=== PATIENT | female | born 1995 | race Caucasian/White ===

== ENCOUNTER 2022-02-03 11:27 | Observation (INO) | payer OTHER, SELFPAY ==
[2022-02-03 12:00] VITALS: BP 122/75; PULSE 101
[2022-02-03 12:01] VITALS: BP 122/62; PULSE 97
[2022-02-03 12:04] VITALS: BMI 43.5
--- NOTE | 2022-02-03 12:05 | OBADM ---
This patient, Jesica Gurrola, admitted to the OB room OB Post 115 for observation. Patient/family oriented to hospital policies and general routines including ID bracelet, bed and alarms, visiting hours, pain management, procedures, bathroom and other care routines, personal items, smoking policy, room service/diet, and visiting hours. Patient/Family are encouraged to report perceived risks to care and to ask questions if they do not understand what they are told or what they should do.
[2022-02-03 12:15] VITALS: BP 130/86; PULSE 120
[2022-02-03 12:30] VITALS: BP 130/76; PULSE 116
[2022-02-03 12:41] LABS: Appearance Urine Clear (Clear); Bilirubin Urine Negative (Negative); Blood Urine Trace-lysed (Negative); Color Urine Yellow (Yellow); Glucose Urine UA Negative (Negative); Ketones Urine 2+ mg/dL (Negative); Leukocyte Esterase Ur Negative LEU/UL (Negative); Nitrate Urine Negative (Negative); Protein Urine Negative (Negative); Urobilinogen Urine 0.2 mg/dL (<2.0)
[2022-02-03 12:45] VITALS: BP 128/74; PULSE 93
[2022-02-03 12:52] LABS: Bacteria Urine Trace /hpf; RBC Urine 0-2 /hpf (0-2); Squamous Epithelial Cell Urine Rare /hpf (Few); WBC Urine 0-3 /hpf
[2022-02-03 12:53] LABS: Add Urine Microscopic? YES
[2022-02-03 13:00] VITALS: BP 135/82; PULSE 107; TEMP 36.6
--- NOTE | 2022-02-05 08:59 | P.PNOB_ITS ---
OB - Triage/Final Diagnosis Visit Information Reason for evaluation: threatened labor Comments/Additional reasons for admission: I have assessed the risk for this patient, Jesica Gurrola, and determined that she would benefit from observation care. Evaluation Laboratory results: Laboratory Tests 02/03/22 11:56 Urine Color Yellow Urine Appearance Clear Urine pH 6.0 Ur Specific Sheldon 1.010 Urine Protein Negative Urine Glucose (UA) Negative Urine Ketones 2+ H Ur Blood (Man) Trace-lysed Urine Nitrate Negative Urine Bilirubin Negative Urine Urobilinogen 0.2 Leukocyte Esterase Rfl Negative Urine RBC 0-2 Urine WBC 0-3 Ur Squamous Epith Cells Rare Urine Bacteria Trace
== END 2022-02-03 14:24 | disposition hospice, home (50) ==
PROVIDERS: Admitting Provider Obstetrics & Gynecology; PCP Nurse Practitioner Adult Health; Visit Provider Obstetrics & Gynecology
DX: O47.9 False labor, unspecified (principal); Z3A.00 Weeks of gestation of pregnancy not specified
CPT/HCPCS: 81001; G0378; G0379

== ENCOUNTER 2022-03-02 10:29 | Outpatient (CLI) | payer OTHER, SELFPAY ==
[2022-03-02 11:31] VITALS: BP 123/66; PULSE 96
--- NOTE | 2022-03-02 11:50 | PC.NURSE ---
Dr Poole notified of patient c/o leaking and swelling, ROM plus negative. OK to dc home and encourage PO hydration.
== END 2022-03-02 11:40 | disposition home or self-care (01) ==
LOC: ANHOBOP 11:20 → ANHOBPP 11:20
PROVIDERS: PCP Nurse Practitioner Adult Health; Visit Provider Obstetrics & Gynecology
DX: O42.90 Premature rupture of membranes, unspecified as to length of time between rupture and onset of labor, unspecified weeks of gestation (principal); Z3A.00 Weeks of gestation of pregnancy not specified
CPT/HCPCS: 59025; 84112; 99199

== ENCOUNTER 2022-03-05 10:16 | Outpatient (RCR) | payer OTHER, SELFPAY ==
[2022-02-12 11:15] VITALS: BP 120/67
[2022-02-16 10:54] VITALS: BP 132/80
[2022-02-19 10:57] VITALS: BP 130/79; PULSE 98
[2022-02-23 11:02] VITALS: BP 130/83; PULSE 115
--- NOTE | 2022-02-26 11:18 | PC.NURSE ---
Dr. Rodriguez on unit and reviewed tracing that has a variable decel in otherwise reactive tracing. Order received for BPP and SVEN; may discharge to home if BPP 8/8. Pt already has a BPP and EFW ordered.
[2022-02-26 11:27] VITALS: BP 128/72; PULSE 102
--- NOTE | ~2022-03-05 | US_ITS ---
EXAMINATION: US OB BPP wo non-stress DATE: 02/19/2022 11:19 CDT INDICATION: Gestational diabetes. TECHNIQUE: Real-time transabdominal obstetric ultrasound. FINDINGS: 02/12/2022 There is a single living fetus in vertex presentation. The placenta is anterior without placenta pre via. cardiac activity and movement is noted with a heart rate of 157 beats per minute. Biophysical profile: breathin of 2 movement: 2 of 2 tone: 2 of 2 Amniotic flud pocket: 2 of 2 Total score: 8 of 8 IMPRESSION: 1. Single living intrauterine in vertex presentation. 2: Total biophysical profile score of 8/8. Reviewed, dictated and finalized at location B.
--- NOTE | ~2022-03-05 | US_ITS ---
EXAMINATION: US OB BPP wo non-stress DATE: 02/12/2022 11:49 CDT INDICATION: Gestational diabetes TECHNIQUE: Real-time transabdominal obstetric ultrasound. FINDINGS: 12/28/2021 There is a single living fetus in vertex presentation. The placenta is anterior without placenta pre via. cardiac activity and movement is noted with a heart rate of 155 beats per minute. Biophysical profile: breathin of 2 movement: 2 of 2 tone: 2 of 2 Amniotic flud pocket: 2 of 2 Total score: 8 of 8 IMPRESSION: 1. Single living intrauterine in vertex presentation. 2: Total biophysical profile score of 8/8. Reviewed, dictated and finalized at location A.
--- NOTE | ~2022-03-05 | US_ITS ---
EXAMINATION: US OB follow up w BPP DATE: 02/26/2022 11:57 INDICATION: Gestational diabetes. Third trimester. TECHNIQUE: Real-time ultrasound of the pelvis was performed. COMPARISON: Ultrasound 02/19/2022 FINDINGS: There is a single living fetus in vertex presentation. The placenta is anterior. heart rate is 138 beats per minute (bpm). The amniotic fluid index is 12.6 cm, which is normal. The following biometric data were obtained: Biparietal diameter (BPD): 9.0 cm; head circumference (HC): 32.1 cm; abdominal circumference (AC): 33 .9 cm; femur length (FL): 7.1 cm. These measurements are concordant. Estimated weight is 3115 g +/- 467 g, which correlates with the 53rd percentile when 03/17/22 is used as estimated date of delivery. As single measurements, these parameters are each equal to the following estimated gestational ages: BPD: 36 weeks 2 days. HC: 36 weeks 1 days. AC: 37 weeks 5 days. FL: 36 weeks 3 days. estimated gestational age based solely on measurements from this exam is 36 weeks 5 days +/- 2 weeks 4 days. Biophysical profile performed by the technologist: breathing (30 sec sustained breathing in 30 minutes): 2 out of 2 movement (3 gross body movements in 30 minutes): 2 out of 2 tone (one episode of punfdgo-xnpmbidps-ztxftya limb movement): 2 out of 2 Amniotic fluid pocket (2 cm): 2 out of 2 Total score: 8 out of 8 IMPRESSION: 1. Single living fetus in vertex presentation. 2. Estimated weight is 3115 g +/- 467 g, which correlates with the 53rd percentile when 03/17/22 is used as estimated date of delivery. 3. Biophysical profile 8 out of 8. Reviewed, dictated and finalized at location B.
--- NOTE | ~2022-03-05 | US_ITS ---
EXAMINATION: US OB BPP wo non-stress DATE: 03/05/2022 11:14 INDICATION: Gestational diabetes. Third trimester. TECHNIQUE: Real-time pelvic ultrasound was performed. COMPARISON: Ultrasound 02/26/2022 FINDINGS: There is a single living fetus in vertex presentation. The placenta is anterior. heart rate is 151 beats per minute (bpm). The amniotic fluid index is 9.6 cm, which is normal. Biophysical profile performed by the technologist: breathing (30 sec sustained breathing in 30 minutes): 2 out of 2 movement (3 gross body movements in 30 minutes): 2 out of 2 tone (one episode of gyfbiio-srikgtmls-tgxqndk limb movement): 2 out of 2 Amniotic fluid pocket (2 cm): 2 out of 2 Total score: 8 out of 8 IMPRESSION: 1. Single living fetus in vertex presentation. 2. Biophysical profile 8 out of 8. Reviewed, dictated and finalized at location A.
[2022-03-05 11:20] VITALS: BP 128/73; PULSE 88
== END 2022-03-23 10:50 | disposition home or self-care (01) ==
LOC: ANHOBOP 10:16
PROVIDERS: PCP Nurse Practitioner Adult Health; Visit Provider Obstetrics & Gynecology
DX: O24.419 Gestational diabetes mellitus in pregnancy, unspecified control (principal); Z3A.35 35 weeks gestation of pregnancy; Z3A.36 36 weeks gestation of pregnancy; Z3A.38 38 weeks gestation of pregnancy
CPT/HCPCS: 59025; 76816; 76819

== ENCOUNTER 2022-03-10 04:52 | Inpatient (IN) | payer OTHER, SELFPAY ==
[2022-03-10] VITALS (143 sets, daily range): BP systolic 73–138; BP diastolic 38–98; PULSE 77–130; RESP 18; TEMP 36.5–36.6; O2SAT 99–100; BMI 43.3
[2022-03-10] MEDS: OXYTOCIN 30 UNITS/NS 500 ML 30 UNITS/500 ML BAG 6 UNITS IV CONT (05:44)
[2022-03-10 05:45] LABS: Basophils Absolute Auto 0.1 K/mm3 (0.0-0.1); Basophils Percent Auto 0.6 % (0.2-1.2); Eosinophils Absolute Auto 0.1 K/mm3 (0-0.3); Eosinophils Percent Auto 0.9 % (0-4.4); Hematocrit 37.4 % (37.0-47.0); Hemoglobin 12.4 g/dL (12.0-15.0); Immature Granulocyte Absolute 0.08 K/mm3 (0.00-0.031); Immature Granulocyte Percent A 0.9 % (0-0.5); Lymphocytes Absolute Auto 1.93 K/mm3 (0.9-3.2); Lymphocytes Percent Auto 21.6 % (18.3-44.2); Mean Corpuscular HGB Conc 33.2 g/dl (32-36); Mean Corpuscular Hemoglobin 27.1 pg (26-34); Mean Corpuscular Volume 81.8 fl (80-100); Mean Platelet Volume 11.4 fl (7.4-10.4); Monocytes Absolute Auto 0.6 K/mm3 (0.1-0.6); Monocytes Percent Auto 6.2 % (2.6-8.5); Neutrophils Absolute Auto 6.2 K/mm3 (1.3-6.7); Neutrophils Percent Auto 69.8 % (45.5-73.1); Platelet Count Result 225 k/mm3 (150-375); Red Blood Count 4.57 M/mm3 (4.2-5.4); Red Cell Distribution Width 13.7 % (11.5-14.5); White Blood Count 8.9 K/mm3 (4.5-10.0)
[2022-03-10] MEDS: LACTATED RINGERS 1,000 ML 125 ML IV CONT ×4 (05:46→20:46)
--- NOTE | 2022-03-10 05:56 | OBADM ---
This patient, Jesica Gurrola, admitted to the OB room Labor/Delivery/Recovery 103 for observation. Patient/family oriented to hospital policies and general routines including ID bracelet, bed and alarms, visiting hours, pain management, procedures, bathroom and other care routines, personal items, smoking policy, room service/diet, and visiting hours. Patient/Family are encouraged to report perceived risks to care and to ask questions if they do not understand what they are told or what they should do.
[2022-03-10 06:10] LABS: Glucose Point of Care 139 mg/dl (65-105)
--- NOTE | 2022-03-10 08:53 | WPDANESEPP ---
Anes - Eval Pre Procedure Procedure: labor epidural Date/Time: 03/10/22 08:54 Preop Diagnosis: labor pain Pre Op Diagnosis: Induction of Labor Patient Data Age: 26 Gender: F Height: 1.6 m Weight: 111 kg Last Vital Signs Pulse 111 H 03/10/22 08:46 BP 134/53 L 03/10/22 08:46 O2 Del Method Room Air 03/10/22 05:30 Allergies Allergy/AdvReac Type Severity Reaction Status Date / Time No Known Allergies Allergy Verified 03/08/22 14:19 Home Medications Medication Instructions Recorded Confirmed Type aspirin 81 mg tablet,delayed 81 mg PO DAILY 11/10/21 03/08/22 History release vitamins-iron fumarate 65 1 tablet PO DAILY 11/10/21 03/08/22 History mg iron-folic acid 1 mg tablet glyburide 2.5 mg tablet 2.5 mg PO BID #30 tabs 02/11/22 03/08/22 Rx methylphenidate HCl 36 mg 36 mg PO 02/15/22 03/08/22 History tablet,extended release 24 hr (Concerta) Laboratory Tests 03/10/22 03/10/22 03/10/22 05:32 05:32 05:48 WBC 8.9 K/mm3 K/mm3 (4.5-10.0) RBC 4.57 M/mm3 M/mm3 (4.2-5.4) Hgb 12.4 g/dL g/dL (12.0-15.0) Hct 37.4 % % (37.0-47.0) MCV 81.8 fl fl (80-100) MCH 27.1 pg pg (26-34) MCHC 33.2 g/dl g/dl (32-36) RDW 13.7 % % (11.5-14.5) Plt Count 225 k/mm3 k/mm3 (150-375) MPV 11.4 fl H fl (7.4-10.4) Immature Gran % (Auto) 0.9 % H % (0-0.5) Neut % (Auto) 69.8 % % (45.5-73.1) Lymph % (Auto) 21.6 % % (18.3-44.2) [place] % (Auto) 6.2 % % (2.6-8.5) Eos % (Auto) 0.9 % % (0-4.4) Baso % (Auto) 0.6 % % (0.2-1.2) Lymph # (Auto) 1.93 K/mm3 K/mm3 (0.9-3.2) [place] # (Auto) 0.6 K/mm3 K/mm3 (0.1-0.6) Eos # (Auto) 0.1 K/mm3 K/mm3 (0-0.3) Baso # (Auto) 0.1 K/mm3 K/mm3 (0.0-0.1) Abs Immat Gran (auto) 0.08 K/mm3 H K/mm3 (0.00-0.031) Absolute Neuts (auto) 6.2 K/mm3 K/mm3 (1.3-6.7) Absolute Nucleated RBC 0.0 K/mm3 K/mm3 (0.0-0.012) Nucleated RBC % 0.0 % % (0.0-0.2) POC Capillary Glucose 139 mg/dl H mg/dl (65-105) RPR Pending Patient hx anesthesia problems: none Family hx anesthesia problems: none Results Review: All pre-operative results and documents have been reviewed as part of the pre-operative evaluation. REPLACED BY [facility] Past Medical History Medical History (Updated 03/10/22 @ 08:54 by Magdalena Paulson CRNA) Abnormal glucose tolerance in ADHD (attention deficit hyperactivity disorder) Anxiety Chronic disease of adenoids Dizziness Gestational diabetes Family History Family History Grandparent Heart disease maternal and paternal grandparents Diabetes mellitus maternal and paternal grandparents Cerebrovascular accident maternal grandmother Father Diabetes mellitus Social History Social History Smoking status: Never smoker Alcohol intake: never Substance use: never Gender identity (if verbalized by the patient): Female Sexual Orientation (if Verbalized by the Patient): Straight or Heterosexual Spiritual care concerns: No Exam Day of Procedure 03/10/22 08:54
[2022-03-10 10:13] LABS: Glucose Point of Care 83 mg/dl (65-105)
[2022-03-10 10:28] LABS: Rapid Plasma Reagin Non-Reactive (NonReactive)
[2022-03-10 15:24] LABS: Glucose Point of Care 70 mg/dl (65-105)
[2022-03-10] MEDS: ACETAMINOPHEN 500 MG TABLET 1000 MG PO (18:35)
[2022-03-10 19:24] LABS: Glucose Point of Care 84 mg/dl (65-105)
[2022-03-10 22:59] LABS: Glucose Point of Care 78 mg/dl (65-105)
[2022-03-11] VITALS (23 sets, daily range): BP systolic 68–124; BP diastolic 49–78; PULSE 95–125; RESP 16–18; TEMP 36.4–37.1; O2SAT 96–100
[2022-03-11] MEDS: OXYTOCIN 30 UNITS/NS 500 ML 30 UNITS/500 ML BAG 125 UNITS IV CONT (01:20)
--- NOTE | 2022-03-11 01:30 | WPDHPUPDATE1 ---
History and Physical Update Update Date/Time: 03/11/22 01:30 History and Physical has been reviewed, including an updated exam of the patient. There are NO changes in the patient's condition. Risks, benefits, and alternatives have been discussed and questions answered. Patient agrees to proceed with procedure.
--- NOTE | 2022-03-11 01:30 | WPDOBADMIT ---
Obstetrics - Admit Note Admission Note: record reviewed. No pertinent additions to the history and/or any subsequent changes in the physical findings that are not consistent with the expected course of the were found. Additions to the history and/or subsequent changes in the physical findings follow. None.
--- NOTE | 2022-03-11 01:30 | PM.OBPRVD ---
OB - Delivery Note Procedure Delivery date: 03/11/22 Events: Gestational Diabetes Induction method: AROM and Per Pitocin Protocol Delivery monitor: External FHT and Internal Uterine Route of delivery: Episiotomy description: None Laceration Description: Perineal - 2nd Degree Delivery repair: chromic Specimen: Yes Quantitative Blood Loss (ml): 350 Anesthesia type: Epidural Disposition: Floor Complications: None Narrative: patient prepped and draped usual manner for this procedure. Maternal expulsive efforts delivered vertex in the rest of baby without difficulty. Cord clamped and cut and placenta delivered spontaneously. Cervix vagina vulva were inspected with second-degree laceration noted. This was approximated using 2-0 chromic in running interlocking manner to approximate the vaginal tissue and deep tissue and a subcuticular layer. Small amount of oozing was encountered and a packing was placed in the vaginal area to be removed at 3:20 p.m. minutes. Uterus was well contracted with no bleeding and immediate postoperative condition mother baby were both excellent. Baby Weeks of gestation at delivery: 39 gender: Male Weight (pounds): 6 Weight (ounces): 15 presentation: vertex Placenta delivery description: Spontaneous Cord Vessel Description: 3 Vessels score one minute: 8 score five minutes: 9 AMG Delivery Billing Delivery Delivery: Delivery Charge
[2022-03-11] MEDS: WITCH HAZEL 40 PADS 1 PAD TOPICAL (03:30)
[2022-03-11] MEDS: BENZOCAINE 20% AER SPR (*SP) 56 GM CAN 1 SPRAY TOPICAL (03:30)
[2022-03-11] MEDS: IBUPROFEN 600 MG TABLET (03:34)
[2022-03-11] MEDS: DOCUSATE SODIUM 100 MG CAPSULE PO ×2 (07:15→17:14)
[2022-03-11] MEDS: MULTIVIT/MIN/PREN/FOL AC/IRON TABLET 1 TAB PO (07:15)
--- NOTE | 2022-03-11 07:44 | PM.OBDSVD ---
DS: Admitting Diagnosis Discharge Date 03/12/2022 Admitting Diagnosis OB - DS: Summary OB Procedures : None OB Procedures Intrapartum: Spontaneous Vag Delivery OB Procedures: : None Time Spent with Patient Time attestation: Total time spent providing and/or coordinating discharge services: DS: Data Data Completed and Pending Pending studies at discharge: Pending at discharge 03/11/22 01:50 Surgical [PTH] Routine Labs on day of discharge: Labs from last 24 hours 03/10/22 03/10/22 03/10/22 22:56 19:15 15:12 POC Capillary Glucose 78 84 70 RPR Blood Type Antibody Screen 03/10/22 03/10/22 03/10/22 10:11 08:40 05:32 POC Capillary Glucose 83 RPR Non-reactive Blood Type O Positive Antibody Screen Negative Discharge Plan Discharge Discharging Clinician: Last Poole Patient Disposition: Home, Self-Care Activity: as tolerated Diet: as tolerated Patient Instructions: Antibiotic Form Stand Alone Forms: General Discharge Information Follow-up/Referrals: Last Poole MD [Physician] - 3 Weeks Discharge Medications: New ibuprofen 600 mg Tablet 600 mg PO Q6H PRN (Reason: Cramping) Qty: 30 0RF Continued vit-iron fum-folic ac 65 mg iron- 1 mg tablet 1 tablet PO DAILY methylphenidate HCl [Concerta] 36 mg Tablet Extended Release 24hr 36 mg PO Discontinued aspirin 81 mg tablet,delayed release (DR/EC) 81 mg PO DAILY glyburide 2.5 mg tablet 2.5 mg PO BID Qty: 30 1RF Date of admission: 03/10/22 04:52 Primary Care Provider: AkiraDiana Admitting Provider: Last Poole Attending physician on admission: Last Poole Condition: Stable
--- NOTE | 2022-03-11 08:07 | PC.NURSE ---
[id number] Introductions were made, then consulted with patient to assess needs related to . Mother led the conversation with her experience feeding her so far and states fed great for the first feeding, then was sleepy after that with no attempt. Infant is in the nursery getting circumcized and a hearing screen. Mother desires to at least pump and feed breastmilk. Reported to RN the blood sugar resulted at 48mg/dl at 0600. Breast pump provided due to ineffective feeding and mother's preference. Instructions given on cleaning, care, usage, that there should be no pain, pumping schedule for milk production, collection, and storage of human milk. Parents are encouraged to record pumping schedule on the feeding sheet. Patient was assessed for correct placement, flange size, to pump for comfort and nipple stretching/stimulation for adequate milk production every 3 hours (8 times in 24 hours). Mother voiced understanding if it has been 2 -3 hours since the start of the last , to call if infant does not latch or there is discomfort with . Reported to the primary RN.
[2022-03-11] MEDS: IBUPROFEN 600 MG TABLET PO (13:22)
--- NOTE | 2022-03-11 16:36 | PC.NURSE ---
[id number] Mother had just finished a breastfeed and hand expressing/pumping session. Primary RN is syringe feeding 1ml of colostrum.
[2022-03-11] MEDS: ACETAMINOPHEN 325 MG TABLET 650 MG PO (17:12)
[2022-03-12] MEDS: IBUPROFEN 600 MG TABLET PO (04:23)
[2022-03-12 05:55] LABS: Hematocrit 28.1 % (37.0-47.0); Hemoglobin 9.1 g/dL (12.0-15.0)
[2022-03-12] MEDS: POLYSACCHARIDE IRON COMPLEX 150 MG CAPSULE PO (07:33)
[2022-03-12] MEDS: DOCUSATE SODIUM 100 MG CAPSULE PO (07:33)
[2022-03-12] MEDS: MULTIVIT/MIN/PREN/FOL AC/IRON TABLET 1 TAB PO (07:33)
[2022-03-12 08:00] VITALS: BP 122/75; PULSE 83; RESP 16; TEMP 36.7; O2SAT 100
--- NOTE | 2022-03-12 09:55 | PC.NURSE ---
Patient instructed to view the discharge video Mother & Baby Care, The First Two Weeks . Patient was given the opportunity and encouraged to ask questions. Patient verbalized understanding of information shared and has been given the mother/baby guide for home reference.
[2022-03-13 09:13] VITALS: BP 129/74; PULSE 96; RESP 20; TEMP 36.9; O2SAT 99
--- NOTE | 2022-03-17 11:08 | PM.OBDSVD ---
DS: Admitting Diagnosis Discharge Date 03/12/22 Admitting Diagnosis OB - DS: Summary OB Procedures : None OB Procedures Intrapartum: Spontaneous Vag Delivery OB Procedures: : None Time Spent with Patient Time attestation: Total time spent providing and/or coordinating discharge services: DS: Data Data Completed and Pending Completed studies during hospitalization: Pending at discharge 03/11/22 01:50 Surgical [PTH] Routine Discharge Plan Discharge Consulting providers: Magdalena Paulson Discharging Clinician: Last Poole Patient Disposition: Home, Self-Care Activity: as tolerated Diet: as tolerated Discharge Instructions: Education: Mom and Baby Guide and Preeclampsia Handout Given to: Mother Follow-Up: Call your delivering provider's office for an appointment to be seen in: 3 weeks Mom and baby should come to the [facility] for the follow-up appointment. Appointment Date/Time: March 13, 2022 at 9:00 am What to expect at your follow-up visit: Physical Assessment Call [phone] if you are unable to keep your appointment time. BREAST CARE: * Wear a snug supportive bra. * For engorgement discomfort: Breast Feeding: * Apply warm moist washcloths * Express milk as needed to relieve engorgement * Wear loose clothing Bottle Feeding: * May apply ice packs * For sore nipples: * Identify correct latch-on * Apply warm moist washcloths before and after nursing * Air dry nipples after nursing * May apply Lansinoh cream to nipples EPISIOTOMY/PERINEAL CARE: * Until bleeding stops, use your brad bottle after urinating * Change your pad frequently throughout the day * You may take sitz baths several times a day (fill your bathtub with warm water and soak for 20 minutes.) Do NOT bathe in the water * No tub baths until seen by your physician - You may shower ACTIVITY: * Rest as much as possible. * Do not exercise or lift anything heavier than your baby (such as laundry or other children.) * Avoid stairs or driving as much as possible. * Do not put anything into the vagina. No douching, tampons, or sexual activity until seen by physician. NOTIFY PHYSICIAN IF YOU HAVE ANY QUESTIONS OR IF ANY OF THE FOLLOWING SYMPTOMS OCCUR: * If your episiotomy becomes red, swollen, or more painful than what you have experienced in the hospital. * If your vaginal bleeding becomes foul smelling. * If your vaginal bleeding becomes more heavy than a period or if your bleeding changes from pink to bright red. However, you may pass an occasional walnut-sized clot once or twice for the first week . * If you experience a sharp, shooting pain in you calves. * If you discover a hard, reddened area on your breast or if you experience flu-like symptoms. DIET: * Eat regular, well-balanced meals. * Drink plenty of fluids daily. If , drink to thirst. Stand Alone Forms: General Discharge Information Follow-up/Referrals: Last Poole MD [Physician] - 3 Weeks Discharge Medications: New ibuprofen 600 mg Tablet 600 mg PO Q6H PRN (Reason: Cramping) Qty: 30 0RF Continued vit-iron fum-folic ac 65 mg iron- 1 mg tablet 1 tablet PO DAILY methylphenidate HCl [Concerta] 36 mg Tablet Extended Release 24hr 36 mg PO Discontinued aspirin 81 mg tablet,delayed release (DR/EC) 81 mg PO DAILY glyburide 2.5 mg tablet 2.5 mg PO BID Qty: 30 1RF Date of admission: 03/10/22 04:52 Primary Care Provider: Akira*Diana Veronica Admitting Provider: Last Poole Attending physician on admission: Last Poole Condition: Stable
== END 2022-03-12 11:25 | disposition home or self-care (01) | DRG 807 ==
LOC: ANHLDR 04:56 → ANHOB2 03-11 03:57
PROVIDERS: Admitting Provider Obstetrics & Gynecology; PCP Nurse Practitioner Adult Health; Visit Provider Obstetrics & Gynecology
DX: O24.429 Gestational diabetes mellitus in childbirth, unspecified control (principal); Z37.0 Single live birth; O70.1 Second degree perineal laceration during delivery; O69.81X0 Labor and delivery complicated by cord around neck, without compression, not applicable or unspecified; Z3A.39 39 weeks gestation of pregnancy
CPT/HCPCS: 36415; 82948; 85014; 85018; 85025; 86592; 86850; 86900; 86901; 88307; A9270; J2590; J2795; J7120

== ENCOUNTER 2024-05-05 09:25 | Outpatient (RCR) | payer OTHER, SELFPAY ==
[2024-03-26 17:34] VITALS: BP 118/77; PULSE 99
[2024-03-29 09:13] VITALS: BP 125/66; PULSE 109
[2024-04-02 15:46] VITALS: BP 122/72; PULSE 80
[2024-04-06 15:49] VITALS: BP 122/70; PULSE 96
[2024-04-09 16:03] VITALS: BP 137/77; PULSE 81
[2024-04-16 17:00] VITALS: BP 126/76; PULSE 77
[2024-04-20 15:50] VITALS: BP 130/81; PULSE 90
[2024-04-23 16:40] VITALS: BP 133/70; PULSE 82
[2024-04-27 15:25] VITALS: BP 128/76; PULSE 86
[2024-04-30 15:22] VITALS: BP 136/77; PULSE 86
[2024-05-02 10:03] LABS: Basophils Percent Auto 0.3 % (0.2-1.2); Eosinophils Absolute Auto 0.1 K/mm3 (0-0.3); Eosinophils Percent Auto 0.7 % (0-4.4); Hematocrit 33.3 % (37.0-47.0); Hemoglobin 10.9 g/dL (12.0-15.0); Immature Granulocyte Absolute 0.15 K/mm3 (0.00-0.031); Immature Granulocyte Percent A 1.6 % (0-0.5); Lymphocytes Absolute Auto 1.45 K/mm3 (0.9-3.2); Lymphocytes Percent Auto 15.1 % (18.3-44.2); Mean Corpuscular HGB Conc 32.7 g/dl (32-36); Mean Corpuscular Volume 82.4 fl (80-100); Mean Platelet Volume 10.9 fl (7.4-10.4); Monocytes Absolute Auto 0.5 K/mm3 (0.1-0.6); Monocytes Percent Auto 5.5 % (2.6-8.5); Neutrophils Absolute Auto 7.4 K/mm3 (1.3-6.7); Neutrophils Percent Auto 76.8 % (45.5-73.1); Nucleated Red Blood Cells Perc 0.2 % (0.0-0.2); Platelet Count Result 192 k/mm3 (150-375); Red Blood Count 4.04 M/mm3 (4.2-5.4); Red Cell Distribution Width 13.2 % (11.5-14.5); White Blood Count 9.6 K/mm3 (4.5-10.0)
[2024-05-02 10:10] LABS: Add Urine Microscopic? YES; Appearance Urine Cloudy (Clear); Bacteria Urine 1+ /hpf; Bilirubin Urine Negative (Negative); Blood Urine Trace (Negative); Color Urine Yellow (Yellow); Glucose Urine UA Negative (Negative); Ketones Urine Trace mg/dL (Negative); Leukocyte Esterase Ur Negative LEU/UL (Negative); Nitrate Urine Negative (Negative); Non Pathogenic Casts 0-2; Protein Urine 1+ mg/dL (Negative); Specific Grav Ur 1.017 (1.001-1.035); Squamous Epithelial Cell Urine Occasional /hpf (Few); Urobilinogen Urine 0.2 mg/dL (<2.0); pH Urine 6.5 (5.0-9.0)
[2024-05-02 10:13] LABS: Alanine Aminotransferase 11 U/L (6-35); Albumin Level 3.3 g/dL (3.5-5.1); Alkaline Phosphatase 135 U/L (38-126); Anion Gap 8 mmol/L (4-12); Aspartate Amino Transferase 23 U/L (14-36); Bilirubin,Total 0.3 mg/dL (0.2-1.3); Blood Urea Nitrogen 5 mg/dL (7-17); Calcium 8.4 mg/dL (8.4-10.2); Carbon Dioxide 25 mmol/L (22-30); Chloride 101 mmol/L (98-107); Estimated Glomerular Filt Rate > 60; Glucose 98 mg/dL (65-110); Potassium 3.7 mmol/L (3.4-5.0); Sodium 134 mmol/L (137-145)
[2024-05-02 10:26] LABS: Creatinine Urine 97.3 mg/dL; Total Protein Urine Random 51 mg/dL; Ur Ttl Prot Creatinine Ratio 0.52 mg/mg (0-0.20)
[2024-05-02 11:26] VITALS: BP 147/78; PULSE 86
[2024-05-02 12:57] VITALS: BP 147/78; PULSE 105
--- NOTE | 2024-05-02 12:58 | PC.NURSE ---
Dr. Poole reviewed labs, reported BPP 04/19. Pt may be discharged, she is to return Tuesday for NST and repeat labs. She is to call the office for an appt on Tuesday.
[2024-05-02 15:07] VITALS: BP 145/87
[2024-05-02 15:15] VITALS: BP 146/82
--- NOTE | 2024-05-02 15:54 | PC.NURSE ---
Reported to Dr. Poole pt took BP at home with a wrist cuff. Dr. Poole stated he told her not to use that because it isn't acurate. Reported BPs. Pt may be discharged home, she is to return Tuesday for testing and Tuesday evening for IOL.
--- NOTE | ~2024-05-05 | US_ITS ---
EXAMINATION: US OB BPP wo non-stress DATE: 04/02/2024 16:29 INDICATION: GDM . TECHNIQUE: Real-time ultrasound of the pelvis was performed. COMPARISON: 03/26/2024 FINDINGS: There is a single living fetus in breech presentation, transverse lie, head to maternal right. The p lacenta is anterior. heart rate is 148 bpm. The deepest amniotic fluid pocket measures 6.2 cm. Biophysical profile performed by the technologist: breathing (30 sec sustained breathing in 30 minutes): 2 out of 2. movement (3 gross body movements in 30 minutes: 2 out of 2. tone (one episode of fkkqfak-xepbiosnq-kbdspbo limb movement): 2 out of 2. Amniotic fluid pocket (2 cm): 2 out of 2. Total score: 8 out of 8. IMPRESSION: Single living fetus in breech presentation, transverse lie, head to maternal right. Biophysical profile 8 out of 8. Reviewed, dictated and finalized at location K. IMPRESSION: Single living fetus in breech presentation, transverse lie, head to maternal ri ght. Biophysical profile 8 out of 8.
--- NOTE | ~2024-05-05 | US_ITS ---
EXAMINATION: US OB follow up w BPP DATE: 04/23/2024 17:00 INDICATION: GDM - BPP and Growth . TECHNIQUE: Real-time ultrasound of the pelvis was performed. COMPARISON: 04/16/2024, 03/26/2024. FINDINGS: There is a single living fetus in vertex presentation, longitudinal lie. The placenta is anterior. F etal heart rate is 141 bpm. The amniotic fluid index is 13.2 cm, which is normal (5th to 95th percent ile is 7.9 to 24.9 cm). The following biometric data were obtained: Biparietal diameter (BPD): 9.05 cm; head circumference (HC): 35.77 cm; abdominal circumference (AC): 34.16 cm; femur length (FL): 7.11 cm. These measurements are concordant. Estimated weight is 3351 g +/- 502.65 g, which correlates with the 95.7 percentile when 05/23/20 24 is used as estimated date of delivery. As single measurements, these parameters are each equal to the following estimated gestational ages w ith ranges of +/- 2 standard deviations: BPD: 36 weeks 5 days ( 33 weeks 3 days - 39 weeks 6 days). HC: out of range, greater than 97th percentile. AC: 38 weeks 0 days ( 35 weeks 0 days - 41 weeks 1 days). FL: 36 weeks 3 days ( 33 weeks 2 days - 39 weeks 4 days). estimated gestational age based solely on measurements from this exam is 37 weeks 0 days +/- 2 weeks 4 days. Biophysical profile performed by the technologist: breathing (30 sec sustained breathing in 30 minutes): 2 out of 2. movement (3 gross body movements in 30 minutes: 2 out of 2. tone (one episode of wszjwxv-vjpiivigx-gmbdhjn limb movement): 2 out of 2. Amniotic fluid pocket (2 cm): 2 out of 2. Total score: 8 out of 8. IMPRESSION: Single living fetus in vertex presentation. Biophysical profile 8 out of 8. Head circumference measures out of range, greater than the 97th percentile. Estimated weight 3351 g +/- 502.65 g (95.7th percentile). RAPHAEL based on ultrasound 05/14/2024. Reviewed, dictated and finalized at location K.
--- NOTE | ~2024-05-05 | US_ITS ---
EXAMINATION: US OB BPP wo non-stress DATE: 04/30/2024 15:58 INDICATION: Maternal gestational diabetes during third trimester TECHNIQUE: Real-time pelvic ultrasound was performed. The interpreting radiologist was not present fo r the study. COMPARISON: 04/23/2024 FINDINGS: There is a single living fetus in transverse lie presentation. The placenta is anterior and not low- lying. heart rate is 150 beats per minute (bpm). Normal cervical length of proximal 4 cm. The e ndocervical canal is hypoechoic measuring up to 7-8 mm in maximal diameter which could represent eith er intraluminal fluid or mucus plug. Biophysical profile performed by the technologist: breathing (30 sec sustained breathing in 30 minutes): 2 out of 2 movement (3 gross body movements in 30 minutes): 2 out of 2 tone (one episode of wwgayao-ihletjgfo-vxczmzk limb movement): 2 out of 2 Amniotic fluid pocket (2 cm): 2 out of 2 Total score: 8 out of 8 IMPRESSION: 1. Single living fetus in transverse lie presentation with heart rate of 150 bpm. 2. Biophysical profile 8 out of 8. Reviewed, dictated and finalized at location A.
--- NOTE | ~2024-05-05 | US_ITS ---
EXAMINATION: US OB BPP wo non-stress DATE: 04/09/2024 16:04 INDICATION: maternal gestational diabetes during third trimester TECHNIQUE: Real-time pelvic ultrasound was performed. The interpreting radiologist was not present fo r the study. COMPARISON: None. FINDINGS: There is a single living fetus in transverse lie with vertex to maternal right. The placenta is ante rior. heart rate is 141 beats per minute (bpm). Biophysical profile performed by the technologist: breathing (30 sec sustained breathing in 30 minutes): 2 out of 2 movement (3 gross body movements in 30 minutes): 2 out of 2 tone (one episode of mwigrlf-feffotetk-vesbybd limb movement): 2 out of 2 Amniotic fluid pocket (2 cm): 2 out of 2 Total score: 8 out of 8 IMPRESSION: 1. Single living fetus in transverse lie with heart rate of 141 bpm. 2. Biophysical profile 8 out of 8. Reviewed, dictated and finalized at location A.
--- NOTE | ~2024-05-05 | US_ITS ---
EXAMINATION: US OB BPP wo non-stress DATE: 04/16/2024 17:06 INDICATION: BPP for GDM . TECHNIQUE: Real-time ultrasound of the pelvis was performed. COMPARISON: 04/09/2024 FINDINGS: There is a single living fetus in breech presentation, transverse lie, vertex in the right upper quad rant. The placenta is anterior, well distant from the cervix. heart rate is [address] vertical amniotic fluid pocket measures 6.9 cm. Biophysical profile performed by the technologist: breathing (30 sec sustained breathing in 30 minutes): 2 out of 2. movement (3 gross body movements in 30 minutes: 2 out of 2. tone (one episode of mohvngy-zqzuamlbd-rjvgeqg limb movement): 2 out of 2. Amniotic fluid pocket (2 cm): 2 out of 2. Total score: 8 out of 8. IMPRESSION: Single living fetus in breech presentation, transverse lie, vertex in the right upper quadrant. Biophysical profile 8 out of 8. . Reviewed, dictated and finalized at location K.
--- NOTE | ~2024-05-05 | US_ITS ---
EXAMINATION: US OB follow up w BPP DATE: 03/26/2024 17:05 INDICATION: BPP and GROWTH for GDM . TECHNIQUE: Real-time ultrasound of the pelvis was performed. COMPARISON: 01/11/2024, images only; 03/05/2022. FINDINGS: There is a single living fetus in breech presentation, transverse lie, head to maternal right. The p lacenta is anterior. heart rate is 145 bpm. The deepest vertical amniotic fluid pocket measures 3.9 cm. The following biometric data were obtained: Biparietal diameter (BPD): 8.52 cm; head circumference (HC): 31.77 cm; abdominal circumference (AC): 29.29 cm; femur length (FL): 6.09 cm. These measurements are concordant. Estimated weight is 2129 g +/- 319.35 g, which correlates with the 83.5 percentile when 05/23/20 24 is used as estimated date of delivery. As single measurements, these parameters are each equal to the following estimated gestational ages w ith ranges of +/- 2 standard deviations: BPD: 34 weeks 2 days ( 31 weeks 2 days - 37 weeks 3 days). HC: 35 weeks 5 days ( 32 weeks 5 days - 38 weeks 5 days). AC: 33 weeks 2 days ( 30 weeks 2 days - 36 weeks 2 days). FL: 31 weeks 4 days ( 28 weeks 5 days - 34 weeks 4 days). estimated gestational age based solely on measurements from this exam is 33 weeks 5 days +/- 2 weeks 3 days. Biophysical profile performed by the technologist: breathing (30 sec sustained breathing in 30 minutes): 2 out of 2. movement (3 gross body movements in 30 minutes: 2 out of 2. tone (one episode of srjtdgh-ddpwazwvi-knblcxg limb movement): 2 out of 2. Amniotic fluid pocket (2 cm): 2 out of 2. Total score: 8 out of 8. IMPRESSION: Single living fetus in breech presentation, transverse lie, head to maternal right. Biophysical profile 8 out of 8. Estimated weight 2129 g +/- 319.35 g. Reviewed, dictated and finalized at location K. IMPRESSION: Single living fetus in breech presentation, transverse lie, head to maternal ri ght. Biophysical profile 8 out of 8. Estimated weight 2129 g +/- 319.35 g.
--- NOTE | ~2024-05-05 | US_ITS ---
LIMITED OBSTETRIC ULTRASOUND/BIOPHYSICAL PROFILE Ordering provider: Last Poole MD History: . BPP, Growth, elevated blood pressure . Comparison: None. FINDINGS: Single live fetus Estimated ultrasound age is 37 weeks 2 days. RAPHAEL is May 21, 2024 PRESENTATION: Vertex. Longitudinal lie. PLACENTAL LOCATION: Anterior. No previa. HEART RATE: 162 bpm (normal is between 110 to 160 bpm). AMNIOTIC FLUID INDEX: 19.3 cm. Largest vertical pocket is 7.4 cm. . -- BIOMETRICS: BPD: 8.7 mm = 35 weeks and 1 day. HC: 338.1 mm = 38 weeks and 6 days. FL: 72.7 mm = 37 weeks and 2 days. AC: 337.3 mm = 37 weeks and 4 days. HC/AC: 1 FL/BPD: 83.4 FL/AC: 21.6 Estimated weight is 3190 gm. Percentile is 66.4%. SCORE: breathing movements: 2 movements: 2 tone: 2 Amniotic fluid volume: 2 Total: 8 IMPRESSION: Single live fetus of cephalic presentation. Normal biophysical profile. Reviewed, dictated and finalized at location A.
[2024-05-05 09:50] LABS: Basophils Percent Auto 0.5 % (0.2-1.2); Eosinophils Absolute Auto 0.1 K/mm3 (0-0.3); Eosinophils Percent Auto 0.8 % (0-4.4); Hematocrit 34.8 % (37.0-47.0); Hemoglobin 11.2 g/dL (12.0-15.0); Immature Granulocyte Absolute 0.07 K/mm3 (0.00-0.031); Immature Granulocyte Percent A 0.9 % (0-0.5); Lymphocytes Absolute Auto 1.24 K/mm3 (0.9-3.2); Mean Corpuscular HGB Conc 32.2 g/dl (32-36); Mean Corpuscular Hemoglobin 26.6 pg (26-34); Mean Corpuscular Volume 82.7 fl (80-100); Mean Platelet Volume 10.9 fl (7.4-10.4); Monocytes Absolute Auto 0.4 K/mm3 (0.1-0.6); Monocytes Percent Auto 5.3 % (2.6-8.5); Neutrophils Absolute Auto 5.9 K/mm3 (1.3-6.7); Neutrophils Percent Auto 76.5 % (45.5-73.1); Platelet Count Result 210 k/mm3 (150-375); Red Blood Count 4.21 M/mm3 (4.2-5.4); Red Cell Distribution Width 13.5 % (11.5-14.5); White Blood Count 7.8 K/mm3 (4.5-10.0)
[2024-05-05 10:00] LABS: Alanine Aminotransferase 11 U/L (6-35); Albumin Level 3.3 g/dL (3.5-5.1); Alkaline Phosphatase 134 U/L (38-126); Anion Gap 7 mmol/L (4-12); Aspartate Amino Transferase 23 U/L (14-36); Bilirubin,Total 0.3 mg/dL (0.2-1.3); Blood Urea Nitrogen 6 mg/dL (7-17); Calcium 8.3 mg/dL (8.4-10.2); Carbon Dioxide 27 mmol/L (22-30); Chloride 99 mmol/L (98-107); Estimated Glomerular Filt Rate > 60; Glucose 104 mg/dL (65-110); Potassium 3.8 mmol/L (3.4-5.0); Sodium 133 mmol/L (137-145); Uric Acid 4.9 mg/dL (2.5-7.5)
[2024-05-05 10:01] LABS: Total Protein Urine Random 186 mg/dL; Ur Ttl Prot Creatinine Ratio 1.13 mg/mg (0-0.20)
[2024-05-05 10:41] LABS: Add Urine Microscopic? YES; Appearance Urine Cloudy (Clear); Bacteria Urine 4+ /hpf; Bilirubin Urine Negative (Negative); Blood Urine 1+ (Negative); Color Urine Yellow (Yellow); Glucose Urine UA Negative (Negative); Ketones Urine Negative (Negative); Leukocyte Esterase Ur Negative LEU/UL (Negative); Need Manual Microscopic Reviewed; Nitrate Urine Negative (Negative); Protein Urine 3+ mg/dL (Negative); Specific Grav Ur 1.021 (1.001-1.035); Squamous Epithelial Cell Urine Few /hpf (Few); WBC Urine 21-50 /hpf (0-3)
[2024-05-05 11:56] VITALS: BP 134/100; PULSE 100
== END 2024-06-24 23:59 | disposition home or self-care (01) ==
LOC: ANHOBOP 09:25
PROVIDERS: PCP Nurse Practitioner Adult Health; Visit Provider Obstetrics & Gynecology
DX: O24.419 Gestational diabetes mellitus in pregnancy, unspecified control (principal); Z3A.31 31 weeks gestation of pregnancy; Z3A.32 32 weeks gestation of pregnancy; Z3A.33 33 weeks gestation of pregnancy; Z3A.34 34 weeks gestation of pregnancy; Z3A.36 36 weeks gestation of pregnancy
CPT/HCPCS: 36415; 59025; 76816; 76819; 80053; 81001; 82570; 84156; 84550; 85025; 87077; 87086; 87088

== ENCOUNTER 2024-05-05 10:26 | Outpatient (CLI) | payer OTHER, SELFPAY ==
[2024-05-05] VITALS (7 sets, daily range): BP systolic 126–150; BP diastolic 75–85; PULSE 81–102; O2SAT 97–98; BMI 46.0
[2024-05-05] MEDS: LABETALOL HCL 100 MG TABLET 200 MG PO (10:38)
--- NOTE | 2024-05-05 11:49 | PC.NURSE ---
Dr. Adorno notified of patient here for NST and PIH labs. FHT category 1 with no contractions. Patient's blood pressure elevated with an elevated PC ratio. Orders received to give labetalol PO and monitor blood pressures. Dr adorno updated about blood pressures. Okay to discharge with prescription of labetalol Q12 and 24 hour hour urine. Patient in agreement with plan of care and will be here tomorrow evening for induction.
== END 2024-05-05 11:50 | disposition home or self-care (01) ==
LOC: ANHOBOP 10:31 → ANHLDR 10:31
PROVIDERS: PCP Nurse Practitioner Adult Health; Visit Provider Obstetrics & Gynecology
DX: R80.9 Proteinuria, unspecified (principal)
CPT/HCPCS: 99199; A9270

== ENCOUNTER 2024-05-06 16:43 | Inpatient (IN) | payer OTHER, SELFPAY ==
[2024-05-06] VITALS (12 sets, daily range): BP systolic 92–127; BP diastolic 47–67; PULSE 71–88; BMI 46.0
[2024-05-06 17:40] LABS: Basophils Percent Auto 0.4 % (0.2-1.2); Eosinophils Percent Auto 0.4 % (0-4.4); Hematocrit 30.7 % (37.0-47.0); Hemoglobin 10.1 g/dL (12.0-15.0); Lymphocytes Absolute Auto 1.85 K/mm3 (0.9-3.2); Mean Corpuscular HGB Conc 32.9 g/dl (32-36); Mean Corpuscular Hemoglobin 26.7 pg (26-34); Mean Corpuscular Volume 81.2 fl (80-100); Mean Platelet Volume 11.5 fl (7.4-10.4); Monocytes Absolute Auto 0.8 K/mm3 (0.1-0.6); Monocytes Percent Auto 8.1 % (2.6-8.5); Neutrophils Absolute Auto 7.4 K/mm3 (1.3-6.7); Neutrophils Percent Auto 72.1 % (45.5-73.1); Platelet Count Result 211 k/mm3 (150-375); Red Blood Count 3.78 M/mm3 (4.2-5.4); Red Cell Distribution Width 13.6 % (11.5-14.5); White Blood Count 10.3 K/mm3 (4.5-10.0)
[2024-05-06 18:33] LABS: HIV 1/2 Ab P24 Ag Result Negative (Negative)
[2024-05-06] MEDS: DINOPROSTONE 10 MG VAG INSERT VAGINAL (18:36)
--- NOTE | 2024-05-06 18:45 | LDADM ---
This patient, Jesica Gurrola, was admitted to Labor/Delivery/Recovery 106 on 05/06/24 at 16:43. Plans for labor, pain management and were discussed with patient. Patient/family oriented to hospital policies and general routines including ID bracelet, bed and alarms, visiting hours, pain management, procedures, bathroom and other care routines, personal items, smoking policy, room service/diet and guest tray routines, infant security routines, and visiting hours. Patient/Family are encouraged to report perceived risks to care and to ask questions if they do not understand what they are told or what they should do. See OBIX for further documentation.
[2024-05-06 18:50] LABS: Rapid Plasma Reagin Non-Reactive (NonReactive)
[2024-05-06 19:07] LABS: Collection Time Urine 24 HOURS
[2024-05-06 19:16] LABS: Creatinine Urine 117.8 mg/dL; Patient Weight 260 Lbs; Total Protein Urine Random 46 mg/dL
[2024-05-06] MEDS: LACTATED RINGERS 1,000 ML 125 ML IV CONT (19:29)
[2024-05-06] MEDS: AMPICILLIN 2 GM/NS 100 ML 2 GM/100 ML BAG IVPB (19:29)
[2024-05-06 19:46] LABS: Total Protein Urine 24 Hr 690 mg/24hr (28-141); Total Volume 24 Hour Urine 1500 ml
[2024-05-06] MEDS: AMPICILLIN 1 GM/NS 50 ML 1 GM/50 ML BAG IVPB (23:21)
[2024-05-06 23:31] LABS: Alanine Aminotransferase 11 U/L (6-35); Albumin Level 3.2 g/dL (3.5-5.1); Alkaline Phosphatase 131 U/L (38-126); Anion Gap 8 mmol/L (4-12); Aspartate Amino Transferase 26 U/L (14-36); Bilirubin,Total 0.3 mg/dL (0.2-1.3); Blood Urea Nitrogen 8 mg/dL (7-17); Calcium 8.8 mg/dL (8.4-10.2); Carbon Dioxide 23 mmol/L (22-30); Chloride 101 mmol/L (98-107); Estimated CRCL calculation 173 ml/min; Estimated Glomerular Filt Rate > 60; Glucose 72 mg/dL (65-110); Potassium 4.1 mmol/L (3.4-5.0); Sodium 132 mmol/L (137-145); Uric Acid 5.4 mg/dL (2.5-7.5)
[2024-05-07] VITALS (120 sets, daily range): BP systolic 78–155; BP diastolic 26–92; PULSE 68–269; RESP 20; TEMP 36.7–38.1; O2SAT 95–100
[2024-05-07] MEDS: AMPICILLIN 1 GM/NS 50 ML 1 GM/50 ML BAG IVPB ×3 (03:45→11:30)
[2024-05-07] MEDS: OXYTOCIN 30 UNITS/NS 500 ML 30 UNITS/500 ML BAG IV CONT (05:51)
[2024-05-07] MEDS: ESCITALOPRAM OXALATE 10 MG TABLET PO (07:39)
[2024-05-07] MEDS: LABETALOL HCL 100 MG TABLET 200 MG PO ×2 (07:39→20:16)
--- NOTE | 2024-05-07 07:57 | PHAR ---
Home med verified: Methylphenidate ER 54mg Take 1 tablet PO QAM
--- NOTE | 2024-05-07 10:46 | WPDANESEPP ---
Anes - Eval Pre Procedure Procedure: Operation Date: 05/17/24 12:00 Proposed Procedures p Section - Last Poole MD Date/Time: 05/07/24 10:46 Surgeon: amy Pre Op Diagnosis: IOL Patient Data Age: 28 Gender: F Height: 1.6 m Weight: 118 kg Last Vital Signs Temp 98.1 F 05/07/24 09:23 Pulse 85 05/07/24 10:46 BP 142/87 H 05/07/24 10:46 Pulse Ox 98 05/07/24 10:43 O2 Del Method Room Air 05/06/24 18:39 Allergies Allergy/AdvReac Type Severity Reaction Status Date / Time No Known Allergies Allergy Verified 05/06/24 18:58 Home Medications Medication Instructions Recorded Confirmed Type blood-glucose sensor (FreeStyle #1 ea 03/19/24 05/02/24 Rx Gregg 3 Sensor device) glyburide 2.5 mg tablet 2.5 mg PO QHS #90 tabs 03/19/24 05/06/24 Rx blood-glucose sensor (FreeStyle #6 ea 03/20/24 05/02/24 Rx Gregg 3 Sensor device) aspirin 81 mg tablet,delayed 162 mg PO DAILY 03/21/24 05/06/24 History release (Adult Low Dose Aspirin) escitalopram oxalate 10 mg tablet 10 mg PO DAILY #60 tabs 03/21/24 05/06/24 Rx famotidine 20 mg tablet (Pepcid) 20 mg PO HS 04/27/24 05/06/24 History vit no.95-ferrous 1 tablet PO DAILY 04/27/24 05/06/24 History fumarate 28 mg-folic acid 800 mcg tablet () methylphenidate HCl 54 mg 54 mg PO QAM #30 tabs 05/03/24 05/06/24 Rx tablet,extended release 24 hr labetalol 200 mg tablet 200 mg PO Q12H 5 days #10 tabs 05/05/24 05/06/24 Rx Laboratory Tests 05/06/24 05/06/24 17:15 18:39 WBC 10.3 H K/mm3 (4.5-10.0) RBC 3.78 L M/mm3 (4.2-5.4) Hgb 10.1 L g/dL (12.0-15.0) Hct 30.7 L % (37.0-47.0) MCV 81.2 fl (80-100) MCH 26.7 pg (26-34) MCHC 32.9 g/dl (32-36) RDW 13.6 % (11.5-14.5) Plt Count 211 k/mm3 (150-375) MPV 11.5 H fl (7.4-10.4) Immature Gran % (Auto) 1.0 H % (0-0.5) Neut % (Auto) 72.1 % (45.5-73.1) Lymph % (Auto) 18.0 L % (18.3-44.2) [place] % (Auto) 8.1 % (2.6-8.5) Eos % (Auto) 0.4 % (0-4.4) Baso % (Auto) 0.4 % (0.2-1.2) Lymph # (Auto) 1.85 K/mm3 (0.9-3.2) [place] # (Auto) 0.8 H K/mm3 (0.1-0.6) Eos # (Auto) 0.0 K/mm3 (0-0.3) Baso # (Auto) 0.0 K/mm3 (0.0-0.1) Abs Immat Gran (auto) 0.10 H K/mm3 (0.00-0.031) Absolute Neuts (auto) 7.4 H K/mm3 (1.3-6.7) Absolute Nucleated RBC 0.000 K/mm3 (0.0-0.012) Nucleated RBC % 0.0 % (0.0-0.2) Sodium 132 L mmol/L (137-145) Potassium 4.1 mmol/L (3.4-5.0) Chloride 101 mmol/L (98-107) Carbon Dioxide 23 mmol/L (22-30) Anion Gap 8 mmol/L (4-12) BUN 8 mg/dL (7-17) Creatinine 0.50 L mg/dL (0.7-1.0) Estim Creat Clear Calc 173 ml/min Estimated GFR > 60 (59 - ) Glucose 72 mg/dL (65-110) Uric Acid 5.4 mg/dL (2.5-7.5) Calcium 8.8 mg/dL (8.4-10.2) Total Bilirubin 0.3 mg/dL (0.2-1.3) AST 26 U/L (14-36) ALT 11 U/L (6-35) Alkaline Phosphatase 131 H U/L (38-126) Total Protein 6.0 L g/dL (6.3-8.2) Albumin 3.2 L g/dL (3.5-5.1) U Random Total Protein 46 mg/dL Ur 24 Hour Volume 1500 ml Urine Creatinine 117.8 mg/dL Creatinine Clearance 197.0 H ml/min (75-125) Ur Total Protein 24 Hr 690 H mg/24hr (28-141) RPR Non-reactive (NonReactive) HIV 1&2 Ab/P24 Ag 4thGn Negative (Negative) Blood Type O Positive Antibody Screen Negative Patient hx anesthesia problems: none Family hx anesthesia problems: none Results Review: All pre-operative results and documents have been reviewed as part of the pre-operative evaluation. [facility] Past Medical History Medical History Abnormal glucose tolerance in ADHD (at
[2024-05-07 11:45] LABS: Glucose Point of Care 75 mg/dl (65-105)
[2024-05-07 14:03] LABS: Glucose Point of Care 75 mg/dl (65-105)
--- NOTE | 2024-05-07 14:42 | WPDHPUPDATE1 ---
History and Physical Update Update Date/Time: 05/07/24 14:42 History and Physical has been reviewed, including an updated exam of the patient. There are NO changes in the patient's condition. Risks, benefits, and alternatives have been discussed and questions answered. Patient agrees to proceed with procedure.
--- NOTE | 2024-05-07 14:42 | PM.OBPRVD ---
OB - Vaginal Delivery Note Procedure Delivery date: 05/07/24 Events: Gestational Diabetes and Preeclampsia w/o severe features Induction method: Per Cervidil Protocol Delivery augmentation: Rupture of Membranes and Pitocin Delivery monitor: External FHT and Internal Uterine Route of delivery: Episiotomy description: None Laceration Description: Vaginal Delivery repair: chromic Specimen: Yes Quantitative Blood Loss (ml): 200 Anesthesia type: Epidural Disposition: Floor Complications: No immediate complications Narrative: patient prepped and draped in usual manner for this procedure. Maternal expulsive efforts delivered vertex over intact perineum, rest of baby delivered without issue. Cord was clamped and cut and placenta delivered spontaneously. Cervix vagina vulva were inspected with vaginal wall laceration noted, was bleeding and repaired using 2-0 chromic running interlocking suture with good approximation and hemostasis noted. Uterus well Contracted. Immediate condition of mother and baby both excellent. Baby Gestational Age by Date: 39 Infant gender: Female presentation: vertex Placenta delivery description: Spontaneous Cord Vessel Description: 3 Vessels
[2024-05-07] MEDS: OXYTOCIN 30 UNITS/NS 500 ML 30 UNITS/500 ML BAG 125 UNITS IV CONT (14:55)
--- NOTE | 2024-05-07 17:40 | PC.NURSE ---
Patient transferred to post room #290 via wheelchair. Support person present. Oriented to unit, room, information board, rooming in, admission packet and security measures. Patient verbalizes understanding.
[2024-05-07] MEDS: FAMOTIDINE 20 MG TABLET PO (20:16)
[2024-05-07] MEDS: IBUPROFEN 600 MG TABLET PO (20:17)
[2024-05-08] VITALS (7 sets, daily range): BP systolic 115–137; BP diastolic 48–82; PULSE 75–101; RESP 16–18; TEMP 36.4–37.1; O2SAT 97–99
[2024-05-08] MEDS: IBUPROFEN 600 MG TABLET PO ×2 (04:25→16:30)
[2024-05-08 05:30] LABS: Basophils Percent Auto 0.3 % (0.2-1.2); Eosinophils Absolute Auto 0.1 K/mm3 (0-0.3); Eosinophils Percent Auto 0.4 % (0-4.4); Hematocrit 32.9 % (37.0-47.0); Hemoglobin 10.6 g/dL (12.0-15.0); Immature Granulocyte Percent A 0.7 % (0-0.5); Lymphocytes Absolute Auto 1.69 K/mm3 (0.9-3.2); Lymphocytes Percent Auto 11.9 % (18.3-44.2); Mean Corpuscular HGB Conc 32.2 g/dl (32-36); Mean Corpuscular Hemoglobin 26.4 pg (26-34); Mean Platelet Volume 11.8 fl (7.4-10.4); Monocytes Absolute Auto 0.8 K/mm3 (0.1-0.6); Monocytes Percent Auto 5.4 % (2.6-8.5); Neutrophils Absolute Auto 11.6 K/mm3 (1.3-6.7); Neutrophils Percent Auto 81.3 % (45.5-73.1); Platelet Count Result 177 k/mm3 (150-375); Red Blood Count 4.01 M/mm3 (4.2-5.4); Red Cell Distribution Width 13.7 % (11.5-14.5); White Blood Count 14.3 K/mm3 (4.5-10.0)
[2024-05-08] MEDS: MULTIVIT/MIN/PREN/FOL AC/IRON TABLET 1 TAB PO (07:19)
[2024-05-08] MEDS: DOCUSATE SODIUM 100 MG CAPSULE PO ×2 (07:19→16:31)
[2024-05-08] MEDS: ACETAMINOPHEN 325 MG TABLET 650 MG PO (07:19)
--- NOTE | 2024-05-08 07:36 | PM.OBPNVD ---
OB - PN: Subj Subjective Date/time seen: 05/08/24 07:36 S: Overall doing well. No sig c/o. Denies CALLEJAS, visual changes, SOB. Also no cough/UTI symptoms. O: VSS afebrile abd: soft/nontender labs: noted A: 1. PPD1...overall doing well 2. fever...resolved, will monitor 3. HTN...monitor on current dose 4. GBS in urine...recieved antibiotics in labor, no issues to this point P: 1. monitor as above, change meds if needed 2. plan home tomorrow if no sig change in status OB - PN: Obj Data Labs 05/08/24 04:26 05/06/24 17:15 Labs: Laboratory Results - last 24 hr 05/07/24 05/07/24 05/08/24 11:40 13:58 04:26 WBC 14.3 H RBC 4.01 L Hgb 10.6 L Hct 32.9 L MCV 82.0 MCH 26.4 MCHC 32.2 RDW 13.7 Plt Count 177 MPV 11.8 H Immature Gran % (Auto) 0.7 H Neut % (Auto) 81.3 H Lymph % (Auto) 11.9 L [place] % (Auto) 5.4 Eos % (Auto) 0.4 Baso % (Auto) 0.3 Lymph # (Auto) 1.69 [place] # (Auto) 0.8 H Eos # (Auto) 0.1 Baso # (Auto) 0.0 Abs Immat Gran (auto) 0.10 H Absolute Neuts (auto) 11.6 H Absolute Nucleated RBC 0.000 Nucleated RBC % 0.0 POC Capillary Glucose 75 75 OB - PN A/P Time Spent With Patient Time: Total time spent is greater than 50% in coordination of care (as documented) at patient's floor/unit and/or counseling patient:
--- NOTE | 2024-05-08 08:07 | WPDANLDPN2 ---
Anes-Prog Note L&D Date/Time: 05/08/24 08:07 Comfortable throughout: labor and delivery Neuraxial method: epidural Epidural/Spinal procedure site: clean & non-tender Neuro status: Neuro function grossly intact. Cardiovascular status: normal Respiratory status: normal Airway patency: baseline Mental status: baseline Post-Op hydration status: normal Vital Signs: Last Vital Signs Temp 36.6 C 05/08/24 04:22 Pulse 75 05/08/24 04:22 Resp 18 05/08/24 04:22 BP 115/69 05/08/24 04:22 Pulse Ox 99 05/08/24 04:22 O2 Del Method Room Air 05/06/24 18:39 Pain score (VAS): 0/10 I/O: Intake & Output 05/07/24 05/08/24 05/08/24 23:59 07:59 15:59 Intake Total 500 Output Total 445 Balance 55 Post-procedural complaints: none Patient feedback: Patient satisfied with anesthetic care.
--- NOTE | 2024-05-08 10:10 | PC.NURSE ---
Introductions were made, then consulted with patient to assess needs related to . Mother led the conversation with her?plans to feed?her infant and the?experience so far. Encouraged understanding of milk production, building/maintaining a milk supply, and duration of pumping. Mother pumped once yesterday with the manual pump so we discussed regular stimulation to promote milk production. Recommended mom use the double electric pump at every feeding time so her body knows how often baby eats and can begin to produce adequate supply. Mother voiced understanding of information shared. name and number written on the communication board. Parents will call if there is a request for assistance. Reported to the Primary RN.
--- NOTE | 2024-05-08 11:20 | PC.NURSE ---
Breast pump use reviewed. Instructions given on cleaning, care, usage, that there should be no pain, pumping schedule for milk production, collection, and storage of human milk. Patient was assessed for correct placement, flange size, to pump for comfort and nipple stretching/stimulation for adequate milk production every 3 hours (8 times in 24 hours) 1-2 times at night. Mother voiced understanding of the education shared. Reported to the Primary RN.
[2024-05-08] MEDS: LABETALOL HCL 100 MG TABLET 200 MG PO (16:32)
[2024-05-09 00:28] VITALS: BP 132/82
[2024-05-09 06:24] VITALS: PULSE 96
[2024-05-09] MEDS: LABETALOL HCL 100 MG TABLET 200 MG PO ×2 (06:24→18:10)
[2024-05-09 08:12] VITALS: BP 122/82; PULSE 75; RESP 14; TEMP 36.4; O2SAT 98
--- NOTE | 2024-05-09 09:00 | PC.NURSE ---
On 05/09/24, the student, Haritha Ortega, provided care and completed [facility] documentation on this patient. I have reviewed the student's documentation and agree with the findings.
[2024-05-09] MEDS: DOCUSATE SODIUM 100 MG CAPSULE PO (09:05)
[2024-05-09] MEDS: IBUPROFEN 600 MG TABLET PO ×2 (09:05→17:38)
--- NOTE | 2024-05-09 09:31 | PM.OBDSVD ---
DS: Admitting Diagnosis Discharge Date 05/09/2024 Admitting Diagnosis DS: Discharge Diagnosis Discharge Diagnosis (1) , delivered: Code(s): O80 - Encounter for full-term uncomplicated delivery Status: Acute OB - DS: Summary OB Procedures : None OB Procedures Intrapartum: Spontaneous Vag Delivery OB Procedures: : None Peripartum Data Laceration Description: Vaginal Episiotomy description: None Procedures: Procedures Operation Date: 05/17/24 12:00 <No data on this case meets the specified criteria> Time Spent with Patient Time attestation: Total time spent providing and/or coordinating discharge services: DS: Data Data Completed and Pending Pending studies at discharge: Pending at discharge 05/07/24 17:56 Surgical [PTH] Routine Discharge Plan Discharge Discharging Clinician: Last Poole Patient Disposition: Home, Self-Care Activity: as tolerated Diet: as tolerated Patient Instructions: Antibiotic Form Stand Alone Forms: General Discharge Information Follow-up/Referrals: Last Poole MD [Physician] - 1 Week Discharge Medications: New ibuprofen 600 mg Tablet 600 mg PO Q6H PRN (Reason: Cramping) Qty: 30 0RF Continued escitalopram oxalate 10 mg tablet 10 mg PO DAILY Qty: 60 1RF famotidine [Pepcid] 20 mg Tablet 20 mg PO HS PNV cmb#95-ferrous fumarate-FA [] 28 mg iron- 800 mcg Tablet 1 tablet PO DAILY labetalol 200 mg Tablet 200 mg PO Q12H 5 Days Qty: 10 0RF (DME) FreeStyle Gregg 3 Sensor Device See Rx Instructions .Route Qty: 1 0RF Rx Instructions: As directed (DME) FreeStyle Gregg 3 Sensor Device See Rx Instructions .Route Qty: 6 0RF Rx Instructions: change sensor every 14 days methylphenidate HCl 54 mg tablet extended release 24hr 54 mg PO QAM Qty: 30 0RF Discontinued aspirin [Adult Low Dose Aspirin] 81 mg tablet,delayed release (DR/EC) 162 mg PO DAILY glyburide 2.5 mg tablet 2.5 mg PO QHS Qty: 90 3RF Date of admission: 05/06/24 16:43 Primary Care Provider: Diana Leon Admitting Provider: Last Poole Attending physician on admission: Last Poole Condition: Stable
[2024-05-09 17:38] VITALS: BP 142/85; PULSE 72; RESP 18; TEMP 36.6; O2SAT 96
[2024-05-09 18:10] VITALS: PULSE 60
[2024-05-11 11:17] VITALS: BP 141/95; PULSE 82; RESP 18; TEMP 36.9; O2SAT 100
== END 2024-05-09 20:18 | disposition home or self-care (01) | DRG 807 ==
LOC: ANHLDR 16:50 → ANHOB2 05-07 17:48
PROVIDERS: Obstetrics & Gynecology; Student in an Organized Health Care Education/Training Program; Admitting Provider Obstetrics & Gynecology; PCP Nurse Practitioner Adult Health; Visit Provider Obstetrics & Gynecology
DX: O24.429 Gestational diabetes mellitus in childbirth, unspecified control (principal); Z37.0 Single live birth; O14.04 Mild to moderate pre-eclampsia, complicating childbirth; O70.0 First degree perineal laceration during delivery; O13.4 Gestational [pregnancy-induced] hypertension without significant proteinuria, complicating childbirth; O99.824 Streptococcus B carrier state complicating childbirth; Z3A.39 39 weeks gestation of pregnancy
CPT/HCPCS: 36415; 80053; 81050; 82575; 82948; 84156; 84550; 85025; 86592; 86703; 86850; 86900; 86901; 88307; A9270; G0432; J0290; J2590; J2795; J7120

== ENCOUNTER 2024-05-27 10:14 | Emergency (ER) | payer OTHER, SELFPAY ==
--- NOTE | ~2024-05-27 | XR_ITS ---
EXAMINATION: XR chest 2V DATE: 05/27/2024 12:41 INDICATION: Cough and shortness of breath 3 weeks TECHNIQUE: PA and lateral views of the chest were obtained. COMPARISON: None FINDINGS: The lungs are clear with no focal airspace opacities, pulmonary edema, pleural effusion or pneumothor ax. The cardiomediastinal silhouette is normal. Visualized bones and soft tissues are unremarkable. IMPRESSION: 1. Normal chest radiograph. Reviewed, dictated and finalized at location A. IMPRESSION: 1. Normal chest radiograph.
[2024-05-27 10:15] VITALS: BP 134/74; PULSE 77; RESP 16; TEMP 36.4; O2SAT 99
[2024-05-27 11:17] VITALS: BP 109/65; PULSE 83; RESP 20; TEMP 36.5; O2SAT 96
[2024-05-27 11:32] VITALS: RESP 20
--- NOTE | 2024-05-27 12:30 | ED.RECABL ---
HPI - Recheck/Abnormal Lab/Rx General Chief Complaint: Recheck/Abnormal Lab/Rx Stated Complaint: sent by [facility] for r/o PE Time Seen by Provider: 05/27/24 11:31 History of Present Illness HPI narrative: 29-year-old female presenting with cough. States that she is 3 weeks . States that she has had a cough since going home from the hospital. She initially had nasal congestion but this has improved. States that she also feels short of breath with exertion. No chest pain or lightheadedness. No leg swelling. No further complaints. Related Data Home Medications Medication Instructions Recorded Confirmed famotidine 20 mg tablet (Pepcid) 20 mg PO HS 04/27/24 05/06/24 vit no.95-ferrous 1 tablet PO DAILY 04/27/24 05/06/24 fumarate 28 mg-folic acid 800 mcg tablet () Allergies Allergy/AdvReac Type Severity Reaction Status Date / Time No Known Allergies Allergy Verified 05/27/24 11:22 Review of Systems Review of Systems: All systems reviewed & are unremarkable except as noted in HPI and below PMFSH Past Medical History Medical History Abnormal glucose tolerance in ADHD (attention deficit hyperactivity disorder) Anxiety Chronic disease of adenoids Dizziness GDM (gestational diabetes mellitus), class A1 Gestational diabetes Pre-eclampsia Surgical History Surgical History H/O adenoidectomy Family History Family History Grandparent Diabetes mellitus maternal and paternal grandparents Heart disease maternal and paternal grandparents Cerebrovascular accident maternal grandmother Father Diabetes mellitus Mother Hypertension Anxiety Social History Social History Smoking status: Never smoker Second hand tobacco smoke exposure: No Alcohol intake: former Alcohol use details: 1-2 month Substance use: never Substance use type: does not use Do You Feel Safe in your Home?: Yes Lack of Transportation: No Lack of Food: Never True Current Housing: I Have Housing Concerned About Future Housing: No Difficulty Paying Gas/Electric Bills: No Difficulty Paying for Meds: No Currently Unemployed: No Education: Bachelor's Degree Difficulty w/ Childcare or Family Care: No Living arrangements: other Additional living arrangements comments: Occupation/Education: occupation Additional occupation/education comments: physician billing Gender identity (if verbalized by the patient): Female Sexual Orientation (if Verbalized by the Patient): Straight or Heterosexual Spiritual care concerns: No Exam Narrative: GENERAL: Nontoxic, no acute distress, pleasant cooperative HEAD: Normocephalic, atraumatic. EYES: PERRLA and EOMI. ENT: Grossly unremarkable NECK: Supple. CHEST: Clear to auscultation. No respiratory distress. HEART: Regular rate and rhythm EXTREMITIES: No edema. SKIN: Warm, dry, no rash. NEURO: No focal deficits. Alert and oriented x3. PSYCH: Normal mood and affect. Course Vital Signs Vital signs: Vital Signs Temperature 97.6 F 05/27/24 10:15 Pulse Rate 77 05/27/24 10:15 Respiratory Rate 16 05/27/24 10:15 Blood Pressure 134/74 05/27/24 10:15 Pulse Oximetry 99 05/27/24 10:15 Temperature 97.7 F 05/27/24 11:17 Pulse Rate 83 05/27/24 11:17 Respiratory Rate 20 05/27/24 11:32 Blood Pressure 109/65 05/27/24 11:17 Pulse Oximetry 96 05/27/24 11:17 Oxygen Delivery Room Air 05/27/24 11:17 MDM - Recheck/Abnormal Lab/Rx MDM Narrative Medical decision making narrative: 29-year-old female presenting with cough. Vital signs are within normal limits. Exam remarkable for the above. Patient was seen at urgent care
[2024-05-27 12:49] LABS: Influenza A QL RT-PCR Negative (Negative); Influenza B QL RT-PCR Negative (Negative); RSV RNA, RT-PCR Negative (Negative); SARS-CoV-2 RNA PCR Negative (Negative)
== END 2024-05-27 13:31 | disposition home or self-care (01) ==
PROVIDERS: Emergency Provider Emergency Medicine; PCP Nurse Practitioner Adult Health
DX: R05.9 Cough, unspecified (principal); R06.02 Shortness of breath; Z20.822 Contact with and (suspected) exposure to COVID-19; F90.9 Attention-deficit hyperactivity disorder, unspecified type; F41.9 Anxiety disorder, unspecified
CPT/HCPCS: 71046; 87637; 99283

== ENCOUNTER 2024-10-13 11:59 | Emergency (ER) | payer OTHER, SELFPAY ==
[2024-10-13 12:45] VITALS: BP 118/85; PULSE 93; RESP 16; TEMP 36.5; O2SAT 99
--- NOTE | 2024-10-13 12:56 | ED_ITS ---
HPI - URI/Sore Throat General Chief Complaint: Upper Respiratory Infection Stated Complaint: Sore Throat Time Seen by Provider: 10/13/24 12:50 Source: patient Mode of arrival: ambulatory Limitations: no limitations History of Present Illness HPI Narrative: Libby is a 29-year-old female patient presenting to the clinic today with complaints of feeling fevers, sore throat, runny nose, nausea, cough, nasal congestion, and generalized not feeling well. States she has had a temperature of 99. Denies any shortness of breath or chest pain. 5-month-old daughter is also being seen for similar symptoms. MD elicited complaint: sore throat and nasal congestion Related Data Allergies Allergy/AdvReac Type Severity Reaction Status Date / Time No Known Allergies Allergy Verified 10/13/24 12:56 Review of Systems Review of Systems: Pertinent positives per HPI. Patient denies any rash, headache, visual changes, dizziness, shortness of breath, chest pain, palpitations, vomiting, diarrhea, constipation, abdominal pain, or any urinary issues. [facility] Past Medical History Medical History GDM (gestational diabetes mellitus), class A1 Pre-eclampsia Gestational diabetes Abnormal glucose tolerance in Chronic disease of adenoids Dizziness Anxiety ADHD (attention deficit hyperactivity disorder) Surgical History Surgical History H/O adenoidectomy Family History Family History Grandparent Diabetes mellitus maternal and paternal grandparents Heart disease maternal and paternal grandparents Cerebrovascular accident maternal grandmother Father Diabetes mellitus Mother Hypertension Anxiety Social History Social History Smoking status: Never smoker Second hand tobacco smoke exposure: No Alcohol intake: former Alcohol use details: 1-2 month Substance use: never Substance use type: does not use Do You Feel Safe in your Home?: Yes Lack of Transportation: No Lack of Food: Never True Current Housing: I Have Housing Concerned About Future Housing: No Difficulty Paying Gas/Electric Bills: No Difficulty Paying for Meds: No Currently Unemployed: No Education: Bachelor's Degree Difficulty w/ Childcare or Family Care: No Living arrangements: other Additional living arrangements comments: Occupation/Education: occupation Additional occupation/education comments: physician billing Gender identity (if verbalized by the patient): Female Sexual Orientation (if Verbalized by the Patient): Straight or Heterosexual Spiritual care concerns: No Comments At the time of my signature, I reviewed and agree with the nursing past medical, surgical, social, and family history. There is no relevant family history pertinent to the patient complaint. Exam Narrative: General: Well-developed, obese, in no apparent distress Head: Normocephalic, atraumatic Eyes: Pupils equally round and reactive to light bilaterally, EOM intact, sclera and conjunctive clear, no discharge, lids normal Ears: TMs intact and congested, ear canals clear, no drainage, grossly hearing normal. Nose: Nares patent, clear discharge, no inflammation, no sinus tenderness. Mouth: Oral pharynx red without lesions or masses, good dentition, MMM. Postnasal drip Neck: Supple, trachea midline, no enlargement of anterior or posterior cervical nodes, no thyroid masses or goiter palpable. Cardio: Regular rate and rhythm, s1 and s2 normal, no murmur appreciated. Resp: Clear to auscultation bilaterally, no rhonchi, rales, wheezing or rubs Course Course Emergency Course: Portions of this record may have been created with voice recognition software. Level of Care: Express Care Visit Vital Signs Vital signs: Vital Signs Temperature 36.5 C 10/13/24 12:45 Pulse Rate 93 10/13/24 12:45 Respiratory Rate 16 10/13/24 12:45 Blood Pressure 118/85 10/13/24 12:45 Pulse Oximetry 99 10/13/24 12:45 Oxygen Delivery Room Air 10/13/24 12:45 Temperature 36.5 C 10/13/24 12:45 Pulse Rate 93 10/13/24 12:45 Respiratory Rate 16 10/13/24 12:45 Blood Pressure 118/85 10/13/24 12:45 Pulse Oximetry 99 10/13/24 12:45 Oxygen Delivery Room Air 10/13/24 12:45 Vital signs reviewed MDM - URI/Sore Throat MDM Narrative Medical decision making narrative: At the time of visit patient is resting comfortably on the exam table. Patient appears to be nontoxic. Labs COVID, influenza, and strep test were performed. All testing was negative. We will send strep for culture. Plan: I suspect patient has URI/pharyngitis/viral syndrome. Supportive measures were discussed with the patient and they voiced understanding discharge instructions and agrees to treatment plan. Return precautions reviewed Differential Diagnosis Differential diagnosis: Likely upper respiratory infection, otitis media, sinusitis, viral infection, bronchitis, influenza, pharyngitis and other (COVID) Lab Data Labs: Lab Results 10/13/24 Range/Units 12:59 POC Influenza A Ag Negative (Negative) POC Influenza B Ag Negative (Negative) POC SARS CoV-2 Ag Negative (Negative) POC Grp A Strep Screen Negative (Negative) Discharge Plan Discharge Clinical Impression: URI (upper respiratory infection) Qualifiers: URI type: unspecified URI Qualified Code(s): J06.9 - Acute upper respiratory infection, unspecified Pharyngitis Qualifiers: Pharyngitis/tonsillitis etiology: unspecified etiology Qualified Code(s): J02.9 - Acute pharyngitis, unspecified Patient Disposition: Home, Self-Care Condition: Stable Instructions: Antibiotic Form, Pharyngitis (ED), Cold Symptoms (ED) Additional Instructions: COVID, influenza, and strep test were all negative in the clinic today. We will send strep for culture if this comes back positive we will contact him place you on antibiotics at that time. Increase fluids and stay well hydrated Tylenol/motrin for pain/fever Flonase and OTC antihistamines as directed Vicks vapor rub to open sinuses Sinus rinses for congestion Cepacol spray, cough drops, throat lozenges, warm tea with honey/lemon, gargle salt water to soothe throat BRAT diet for diarrhea Clear liquids x 24 hours then advance as tolerated for nausea/vomiting Go to the ED if you develop a worsening in your condition- high fever not controlled by Tylenol or Motrin, dehydration, weakness, lethargy, shortness of breath, or chest pain. Follow up with your PCP in 3-5 days if symptoms persist. Patient Language: Urdu Prescriptions: No Action drospirenone-ethinyl estradiol [BAYRON (28)] 3-0.02 mg tablet 1 tablet PO DAILY Qty: 84 3RF escitalopram oxalate 10 mg tablet 10 mg PO DAILY Qty: 60 1RF Wegovy 0.5 mg/0.5 mL pen injector 0.5 mg subcut WEEKLY Qty: 2 0RF Rx Instructions: administer weeks 5 through 8 of therapy Wegovy 1 mg/0.5 mL pen injector 1 mg subcut Q7D Qty: 2 0RF methylphenidate HCl 54 mg tablet extended release 24hr 54 mg PO QAM Qty: 30 0RF Follow-up/Referrals: PHYSICIAN,BUILDING MAINTENANCE SUPERVISOR [Primary Care Provider] - Time of Disposition: 12:58 Quality NIHSS Nursing Documentation ED NIHSS nursing documentation: reviewed/agree
[2024-10-13 13:01] LABS: EDCOVIDSCREEN Negative (Negative); EDINFLUASCREEN Negative (Negative); EDINFLUBSCREEN Negative (Negative); EDSTREPNEGPOS1 Negative (Negative)
== END 2024-10-13 13:01 | disposition home or self-care (01) ==
PROVIDERS: Emergency Provider Nurse Practitioner Family
DX: J06.9 Acute upper respiratory infection, unspecified (principal); J02.9 Acute pharyngitis, unspecified; Z20.822 Contact with and (suspected) exposure to COVID-19; F41.9 Anxiety disorder, unspecified; F90.9 Attention-deficit hyperactivity disorder, unspecified type
CPT/HCPCS: 87081; 87426; 87804; 87880; 99213; G0463

== ENCOUNTER 2024-11-27 15:55 | Outpatient (CLI) | payer OTHER, SELFPAY ==
--- OUTSIDE RECORDS SUMMARY | 2024-11-27 17:49 | XMS_ITS | Clinical Summary ---
Author Organization [facility] Address [address] [place] [address] Care Team Providers Care Buyer Assistant Name Role Phone Diana Leon REMARKETING MANAGER-PRINCIPAL EXAMINER Primary Care Provider + Source Comments [facility],non-[facility] Affiliates and Associated Physician Practices is amultiple site organization consisting of ambulatory clinics and hospital sitesin [place], [place], [place] and [place]. This disclosure is being madepursuant to the Care Everywhere program and may not contain all information available regarding this patient. Last updated 18.[facility] Allergies No known active allergies Medications * Be aware that medications may not be up to date on this document. Alwaysverify current medications with the patient. Medication Sig Dispensed Refills Start Date End Date Status aspirin EC (ECOTRIN) 81 MG tablet Take 81 mg by mouth once daily Active methylphenidate CR (CONCERTA) 36 MG tabletIndications:A ttention Deficit Hyperactivity Disorder Take 36 mg by mouth every morning Reasons: Attention Deficit Hyperactivity Disorder Active Vit-Fe Fumarate-FA ( VITAMIN) 28-0.8 MG tabletIndications:P regnancy Take 1 tablet by mouth once daily Reasons: Active magnesium oxide (MAG-OX) 400 MG tablet Take 400 mg by mouth once daily Active OneTouch Delica Lancets 33G MISC Use 1 Each 4 times daily 100 Each 2 02/03/2022 Active blood glucose (ONETOUCH VERIO) test strip Use 1 (one) strip 4 times daily 100 strip 2 02/03/2022 Active insulin syringe-needle (BD ULTRAFINE II) 31G X 5/16 0.5 ML syringe as directed For insulin administration. 100 Each 1 02/03/2022 Active insulin aspart (NOVOLOG) pen Inject 6 (six) Units to 30 (thirty) Units subcutaneously as directed Start with 6 units 0-15 before bfast. Increase as directed. 15 mL 02/10/2022 Active Insulin Pen Needle 32G X 4 MM MISC Use 1 Each once daily 100 Each 2 02/10/2022 Active insulin NPH (HUMULIN N) vial Inject 10 (ten) Units to 40 (forty) Units subcutaneously at bedtime Start with 10 units. Increase dose by 4 units when 2 consecutive fasting levels 90 or above. 10 mL 1 02/10/2022 Active Active Problems Problem Noted Date Diagnosed Date Insulin controlled gestation al diabetes mellitus (GDM) in third trimester 02/03/2022 ADHD 02/03/2022 Anxiety 02/03/2022 Obesity 02/03/2022 Family History Medical History Relation Name Comments Diabetes; unknown type Father Hypertension Maternal Grandmother Cancer - Breast Paternal Grandmother Stillbirth/Multiple Miscarriages/Infertility Sister Relation Name Status Comments Father Maternal Grandmother Paternal Grandmother Sister Social History Tobacco Use Types Packs/Day Years Used Date Smoking Tobacco: Never Smokeless Tobacco: Never Alcohol Use Standard Drinks/Week Comments Not Currently 0 (1 standard drink = 0.6 oz pur e alcohol) Sex and Gender Information Value Date Recorded Sex Assigned at Not on file Gender Identity Not on file Sexual Orientation Not on file Last Filed Vital Signs Vital Sign Reading Time Taken Comments Blood Pressure 134/84 02/09/2022 11:41 AM CDT Pulse 104 02/09/2022 11:41 AM CDT Temperature - - Respiratory Rate - - Oxygen Saturation - - Inhaled Oxygen Concentration - - Weight 108.4 kg (239 lb) 02/03/2022 9:20 AM CDT Height 162.6 cm (5' 4 ) 02/03/2022 9:20 AM CDT Body Mass Index 41.02 02/03/2022 9:20 AM CDT Plan of Treatment Health Maintenance Due Date Last Done Comments PAP SMEAR 1995 HIV SCREENING 2010 HEPATITIS C SCREENING 05/05/2013 DTAP/TDAP/TD VACCINES (1 - Tdap) 2014 HEPATITIS B VACCINE (1 of 3 - 19+ 3-dose series) 2014 COVID-19 VACCINE (3 2023-2 5 season) 2024 02/07/2021, 01/17/2021 INFLUENZA VACCINE (#1) 2024 , 05/23/2022 DEPRESSION SCREENING 09/12/2024 ZOSTER VACCINE (1 of 2) 2045 HIB VACCINE Aged Out No longer eligi ble based on patient's age to complete this topic HPV VACCINE Aged Out No longer eligi ble based on patient's age to complete this topic MENINGOCOCCAL (Group B) VACCINE SHARED DECISION-MAKING Aged Out No longer eligible based on patient's age to complete this topic MENINGOCOCCAL GROUPS A/C/Y/W VACCINE Aged Out No longer eligible b ased on patient's age to complete this topic PNEUMOCOCCAL VACCINE Aged Out No long er eligible based on patient's age to complete this topic Care Teams Buyer Assistant Relationship Specialty Start Date End Date Diana Leon APRN-PRINCIPAL EXAMINER [address] [address] PCP - General 03/19/22
--- OUTSIDE RECORDS SUMMARY | 2024-11-27 17:49 | XMS_ITS | Referral Summary ---
Author Organization [facility] [address] Address [address] [place] [id number] Care Team Providers Care Personal Loan Specialist Name Role Phone Diana Leon NP Primary Care Provider [phone] Allergies Active Allergy Reactions Criticality Noted Date Comments Bromelains Unknown 05/27/2024 Medications escitalopram (LEXAPRO) 5 mg tablet 04/30/2023 Active methylphenidate ER (CONCERTA) 54 mg CR tablet TAKE 1 TABLET BY MOUTH EVERY DAY FOR 30 DAYS 04/07/2023 Active insulin aspart (NovoLOG) 100 unit/mL (3 mL) pen for injection Inject under the skin as directed 02/10/2022 Active insulin NPH (HumuLIN N, NovoLIN N) 100 unit/mL vial for injection Inject under the skin nightly 02/10/2022 Active magnesium oxide (MAG-OX) 400 mg (241.3 mg elemental magnesium) tablet Take 1 tablet (400 mg total) by mouth daily Active Active Problems No known active problems Social History Tobacco Use Types Packs/Day Years Used Date Smoking Tobacco: Never Assessed Comments Unknown Sex and Gender Information Value Date Recorded Sex Assigned at Not on file Legal Sex Female 7:06 PM CDT Gender Identity Female 05/04/2023 11:21 AM CDT Sexual Orientation Straight 05/04/2023 11 :21 AM CDT Last Filed Vital Signs Vital Sign Reading Time Taken Comments Blood Pressure 125/91 05/27/2024 9:35 AM CDT Pulse 98 05/27/2024 9:53 AM CDT Temperature 36.1 C (96.9 F) 05/27/2024 9:35 AM CDT Respiratory Rate 22 05/27/2024 9:35 AM CDT Oxygen Saturation 99% 05/27/2024 9:53 AM CDT Inhaled Oxygen Concentration - - Weight 107 kg (236 lb) 05/27/2024 9:35 AM CDT Height 160 cm (5' 3 ) 05/04/2023 2:33 PM CDT Body Mass Index 41.81 05/04/2023 2:33 PM CDT Plan of Treatment Not on file Insurance [employer] [facility] [employer]PPO Address: [address] [address] [employer] [facility] [employer]O Address: [address] [address] [place] [address] [employer] [facility] [employer]O Address: [id number] [place] [address] Care Teams Personal Loan Specialist Relationship Specialty Start Date End Date Diana Leon NP [facility] [place] [address] PCP - General Nurse Practitioner 05/27/24
--- OUTSIDE RECORDS SUMMARY | 2024-11-27 17:49 | XMS_ITS | Clinical Summary ---
Author Organization [facility] [address] Address [address] [place] [phone] Care Team Providers Care Gas Prover Name Role Phone Diana Leon NP Primary Care Provider [phone] Allergies Active Allergy Reactions Criticality Noted Date [...] Orientation Straight 05/04/2023 11 :21 AM CDT Obstetrics History Last Filed Vital Signs Vital Sign Reading [...] 05/04/2023 2:33 PM CDT Plan of Treatment Health Maintenance Due Date Last Done Comments Cervical Cancer Screening 1995 Depression Screening 1995 Hepatitis C Screening 1995 Varicella Vaccines (1 of 2 - 13+ 2-dose series) 2008 Hepatitis B Screening 2013 Regular Well Visit/Exam 18-64 2013 Covid-19 Vaccine (3 - 2023-2 5 season) 2024 02/07/2021, 01/17/2021 Influenza Vaccine (#1) 2024 , 05/23/2022 DTaP/Tdap/Td Vaccine (2 - Td or Tdap) 02/12/2032 02/11/2022 HPV Vaccines Aged Out No longer eligi ble based on patient's age to complete this topic Pneumococcal vaccine <65 Aged Out No longer eligible based on patient's age to complete this topic Insurance [facility] [employer] [facility] [employer] [employer] Care Teams Gas Prover Relationship Specialty Start Date End Date Diana Leon NP [address] [place] [address] [place] [address] PCP - General Nurse Practitioner 05/27/24
[2024-11-27 19:37] LABS: Hematocrit 43.1 % (37.0-47.0); Hemoglobin 14.9 g/dL (12.0-15.0); Mean Corpuscular HGB Conc 34.6 g/dl (32-36); Mean Corpuscular Hemoglobin 29.5 pg (26-34); Mean Corpuscular Volume 85.3 fl (80-100); Mean Platelet Volume 10.9 fl (7.4-10.4); Platelet Count Result 297 k/mm3 (150-375); Red Blood Count 5.05 M/mm3 (4.2-5.4); Red Cell Distribution Width 12.1 % (11.5-14.5)
[2024-11-27 20:03] LABS: Free T4 Free Thyroxine 0.82 ng/dL (0.78-2.19); Vitamin D 25 Hydroxy 24.3 ng/mL
[2024-11-27 21:38] LABS: Alanine Aminotransferase 21 U/L (6-35); Albumin Level 4.5 g/dL (3.5-5.1); Alkaline Phosphatase 61 U/L (38-126); Anion Gap 11 mmol/L (4-12); Aspartate Amino Transferase 24 U/L (14-36); Bilirubin,Total 0.5 mg/dL (0.2-1.3); Blood Urea Nitrogen 10 mg/dL (7-17); Calcium 9.5 mg/dL (8.4-10.2); Carbon Dioxide 23 mmol/L (22-30); Chloride 105 mmol/L (98-107); Estimated Glomerular Filt Rate > 60; Glucose 99 mg/dL (65-110); Potassium 3.7 mmol/L (3.4-5.0); Sodium 139 mmol/L (137-145)
== END 2024-11-27 15:56 | disposition home or self-care (01) ==
LOC: ANHBWCLAB 15:56
PROVIDERS: PCP Nurse Practitioner Adult Health; Visit Provider Nurse Practitioner Adult Health
DX: Z13.9 Encounter for screening, unspecified (principal); R53.83 Other fatigue
CPT/HCPCS: 36415; 80053; 82306; 84439; 84443; 85027